=== PATIENT | male | born 1985 | race Two or more races ===

== ENCOUNTER 2019-08-16 16:07 | Emergency (ER) | payer OTHER ==
[~2019-08-16] VITALS: Ht 193 cm; Wt 88.0 kg
[2019-08-16] MEDS ORDERED: KETOROLAC 30MG/ML VIAL IV STA (16:29)
[2019-08-16] MEDS ORDERED: SODIUM CHLORIDE 0.9% 1,000 ML IV ONE (16:29)
[2019-08-16] MEDS ORDERED: SODIUM CHLORIDE 0.9% 1000ML BAG (SEPSIS BOLUS) IV ONE (18:00)
[2019-08-16 18:38] LABS: CLARITY URINE CLEAR (CLEAR); COLOR URINE YELLOW (YELLOW); KETONES URINE 1+ (NEGATIVE); LEUKOCYTE ESTERASE URINE NEGATIVE (NEGATIVE); NITRITE URINE NEGATIVE (NEGATIVE); OCCULT BLOOD URINE 1+ (NEGATIVE); PROTEIN URINE NEGATIVE (NEGATIVE); SPECIFIC GRAVITY URINE 1.022 (1.005-1.030)
[2019-08-16 19:01] LABS: *AMPHETAMINES SCREEN URINE NEGATIVE (NEGATIVE); *BARBITURATES SCREEN URINE NEGATIVE (NEGATIVE); *BENZODIAZEPINES SCREEN URINE NEGATIVE (NEGATIVE)
[2019-08-16 19:02] LABS: *COCAINE SCREEN URINE NEGATIVE (NEGATIVE); CANNABINOID URINE SCREEN NEGATIVE (NEGATIVE); METHADONE URINE SCREEN NEGATIVE (NEGATIVE); OPIATES URINE SCREEN NEGATIVE (NEGATIVE); PHENCYCLIDINE URINE SCREEN NEGATIVE (NEGATIVE)
[2019-08-16 19:16] LABS: BASOPHILS % 0.7 % (0.0-2.0); EOSINOPHILS % 1.5 % (0.0-5.0); HEMOGLOBIN. 13.5 g/dL (14.0-18.0); MEAN CORPUSCULAR VOLUME 86.3 fL (80.0-94.0); MEAN PLATELET VOLUME 6.8 fl (7.4-10.4); MONOCYTES % 11.1 % (2.0-8.0); NEUTROPHILS % 74.7 % (40.0-76.0); PLATELET 254 x1000/uL (130-400); RED BLOOD CELL COUNT 4.64 mill/uL (4.7-6.1)
[2019-08-16 19:19] LABS: CHLORIDE 107 mEq/L (98-107)
[2019-08-16 19:20] LABS: INR 1.2; PROTHROMBIN TIME 12.3 sec (9.6-11.0)
[2019-08-16] MEDS ORDERED: PIPERACILLIN/TAZ 3.375G PREMIX 50 ML IV ONE (20:45)
[2019-08-16] MEDS ORDERED: CLINDAMYCIN 600 MG in DEXTROSE 5% WATER 50 ML IV ONE (20:45)
[2019-08-16] MEDS ORDERED: OSELTAMIVIR 75MG CAPSULE PO ONE (21:15)
[2019-08-16] MEDS ORDERED: CLINDAMYCIN 600MG PREMIX 50 ML IV SCH (22:15)
[2019-08-16 22:33] VITALS: BP 142/81
== END 2019-08-16 23:51 | disposition left against medical advice (07) ==
LOC: ER 16:07 → CANBEDREQ 08-17 01:52
DX: J32.9 Chronic sinusitis, unspecified (principal); Z87.891 Personal history of nicotine dependence
CPT/HCPCS: 36415; 70450; 70486; 71045; 80053; 80305; 81003; 83605; 83690; 84145; 84484; 85025; 85610; 87040; 87070; 87086; 87430; 87804; 93005; 96365; 96367; 96375; 99284; J1885; J2543; J3490; J7030; J7060